=== PATIENT | female | born 1980 | race Caucasian/White ===

== ENCOUNTER 2020-03-21 11:00 | Emergency (ER) | payer MEDICAID, SELFPAY ==
[2020-03-21 11:08] VITALS: BP 144/88; PULSE 92; RESP 18; TEMP 36.6; O2SAT 100; BMI 41.1
--- NOTE | 2020-03-21 11:25 | W.ED.BACK ---
HPI - Back Pain/Injury General: Chief Complaint: Back Pain/Injury Stated Complaint: BACK PAIN Time Seen by Provider: 03/21/20 11:17 Source: patient Mode of arrival: ambulatory Limitations: no limitations History of Present Illness: HPI Narrative: 39-year-old female states she leaned over and pulled close of a washing machine yesterday. She states that she had a sudden low back pain after that. States the pain is a spasm-like pain and is much worse with walking or movement. She states if she sits or lays down the pain resolves. She states she used heat overnight with no improvement. She denies any bowel or bladder incontinence. MD elicited complaint: back pain Onset (ago): day(s) Timing: constant Severity: moderate Associated symptoms: Deny abdominal pain, chills, dysuria, fever(s), nausea or vomiting Review of Systems Const: Denies: fever(s), chills, body aches or change in appetite Eyes: Denies: blurry vision or eye discomfort ENMT: Denies: throat pain or dental pain Card: Denies: chest pain Resp: Denies: dyspnea GI: Denies: abdominal pain, nausea, vomiting or diarrhea : Denies: dysuria Musc: Reports: back pain Skin/Breast: Denies: rash Neuro: Denies: headache(s) Psych: Denies: depression Richard/Lymph: Denies: easy bruising All/Imm: Denies: urticaria Physical Exam Const: COMMON NORMALS: no acute distress, patient oriented x3 and healthy appearing HENMT: COMMON NORMALS: normocephalic and atraumatic HEAD & SCALP: normocephalic and atraumatic Eye: COMMON NORMALS: Equal, round and reactive pupils present and EOMs intact bilaterally PUPIL: Yes Equal, round and reactive pupils present Neck/C-Spine: COMMON NORMALS: full ROM and supple Chest: COMMONS NORMALS: normal inspection of the chest and normal palpation of entire chest wall Resp: COMMON NORMALS: normal respiratory effort, No retractions, No use of accessory muscles and clear to auscultation bilaterally AUSCULTATION: clear to auscultation bilaterally Cardio: COMMON NORMALS: regular rate, regular rhythm and No murmurs present (Cardio) RATE: regular rate RHYTHM: regular rhythm GI: COMMON NORMALS: Normal to inspection, nondistended, normoactive bowel sounds present, Soft to palpation, non-tender and no masses PALPATION: Yes Soft to palpation Back/Pelvis: OTHER: Paraspinal tenderness with no midline tenderness 5 out of 5 strength bilateral extremities. Extremity: COMMON NORMALS: normal to inspection and full ROM Neuro: COMMON NORMALS: patient oriented x3, moves all extremities and no focal motor deficits Psych: COMMON NORMALS: mental status grossly normal, Normal thought process present and cooperative THOUGHT PROCESS: Normal thought process present Skin: COMMON NORMALS: no rashes or lesions noted and no wounds GENERAL SKIN EXAM: no rashes or lesions noted Course Vital Signs: Vital signs: Vital Signs Temperature 97.9 F 03/21/20 11:08 Pulse Rate 92 03/21/20 11:08 Respiratory Rate 18 03/21/20 11:08 Blood Pressure 144/88 03/21/20 11:08 Pulse Oximetry 100 03/21/20 11:08 MDM - Back Pain/Injury MDM Narrative: Medical decision making narrative: Patient presents here with low back pain with a likely lumbar strain. Patient is to ice rest and will place on Naprosyn and Robaxin. She has no signs of spinal cord injury or abscess. Discharge Plan Discharge Patient Disposition: Home Clinical Impression: Strain of lumbar region Qualifiers: Encounter type: initial encounter Qualified Code(s): S39.012A - Strain of muscle, fascia and tendon of lower back, initial encounter Condition: Stable Prescriptions: New Robaxin-750 750 mg tablet 750 mg PO Q6H Qty: 30 RF: 0 Naprosyn 500 mg tablet 500 mg PO BID PRN (Reason: pain) Qty: 20 RF: 0 Discharge Orders: Discharge ED (Routine); Ordered 03/21/20 Ordered By: Wilman Hilton Discharge Diet: Advance as tolerated Discharge Activity: Resume usual activity Patient Instructions: Low Back Strain (ED) Stand Alone Forms: Work/School Release Coding Level of Care Code ED Grazing Aide for William Maradiaga
[2020-03-21] MEDS: HYDROcodone-acetaminophen 7.5-325 mg Tablet 1 TAB PO (11:41)
[2020-03-21 12:14] VITALS: BP 144/65; PULSE 74; RESP 18; O2SAT 97
== END 2020-03-21 12:15 | disposition home or self-care (01) ==
PROVIDERS: Emergency Provider Emergency Medicine
DX: S39.012A Strain of muscle, fascia and tendon of lower back, initial encounter (principal); X50.9XXA Other and unspecified overexertion or strenuous movements or postures, initial encounter
CPT/HCPCS: 12345; 99281; 99282

== ENCOUNTER 2022-12-25 15:01 | Emergency (ER) | payer MEDICAID, SELFPAY ==
[2022-12-25] VITALS (23 sets, daily range): BP systolic 112–145; BP diastolic 55–108; PULSE 55–80; RESP 16–18; TEMP 37.1; O2SAT 93–98; BMI 35.2
--- NOTE | 2022-12-25 15:14 | W.ED.ABDPA2 ---
HPI - Abdominal Pain General: Chief Complaint: Abdominal Pain Stated Complaint: frnt left abd pain Time Seen by Provider: 12/25/22 15:04 Source: patient Mode of arrival: ambulatory Limitations: no limitations History of Present Illness: Patient is a nice 42-year-old female presents to ED today with complaint of abdominal pain. Patient states pain began after eating yesterday evening. She states she immediately started feeling nauseous. She states pain seemed to wax and wane throughout the remainder of the evening and through the night but states she continued to get progressively worsening exacerbations of her discomfort. She states she has vomited several times today and pain does not seem to be easing up thus prompting her ED visit. She denies fevers. She states she is having normal bowel movements and passing flatulence. She denies urinary complaints. No flank pain. MD elicited complaint: abdominal pain Pertinent past history: kidney stones Onset (ago): day(s) (yesterday) Pain Consistency: intermittent Location: RUQ Severity: severe Quality: sharp Radiation: none Migration to: no migration Exacerbating factors: eating (occurred after eating yesterday evening) Relieving factors: nothing Associated Symptoms: Reports nausea and vomiting; Denies chills, diarrhea, dysuria, excessive flatus, fever(s), hematochezia, hematuria and melena Related Data: Patient : No Review of Systems Const: Denies: fever(s), chills, body aches, fatigue or malaise Card: Denies: chest pain Resp: Denies: dyspnea GI: Reports: abdominal pain, nausea and vomiting; Denies: diarrhea, excessive flatus, hematochezia, melena or mucus in stool : Denies: flank pain, dysuria or hematuria Musc: Denies: neck pain, back pain, extremity pain or joint pain Skin/Breast: Denies: rash Neuro: Denies: headache(s), numbness in extremities, weakness in extremities, sensory changes or dizziness Physical Exam Const: COMMON NORMALS: patient oriented x3, no limitations, alert and well nourished GENERAL APPEARANCE: cooperative and anxious (secondary to pain) NUTRITIONAL APPEARANCE: overweight ORIENTATION/CONSCIOUSNESS: Yes awake, Yes oriented to person, Yes oriented to place and Yes oriented to time HENMT: COMMON NORMALS: normocephalic and atraumatic HEAD & SCALP: normal to inspection, normocephalic and atraumatic Eye: COMMON NORMALS: no scleral icterus Resp: COMMON NORMALS: normal respiratory effort and clear to auscultation bilaterally AUSCULTATION: clear to auscultation bilaterally Cardio: COMMON NORMALS: regular rate and regular rhythm RATE: regular rate RHYTHM: regular rhythm GI: COMMON NORMALS: Normal to inspection, nondistended, normoactive bowel sounds present, Soft to palpation, No hepatosplenomegaly present and no masses INSPECTION: Yes normal to inspection AUSCULTATION: Yes Hypoactive bowel sounds present PALPATION: Yes Soft to palpation, Yes Tenderness to palpation present (GI) Details: RUQ (+ Harvey's), Yes Guarding due to palpation present (GI) and Yes No hepatosplenomegaly present : COMMON NORMALS: Yes no CVA tenderness BLADDER/KIDNEY EXAM: Yes no CVA tenderness Back/Pelvis: COMMON NORMALS: no CVA tenderness, thoracic and lumbar spine normal to inspection, no thoracic nor lumbar tenderness and thoraco-lumbar ROM normal Extremity: COMMON NORMALS: normal to inspection GENERAL: Yes normal exam except as noted Neuro: ANAI COMA SCALE: document GCS findings [place] coma scale eye opening: Spontaneous Anai coma scale verbal response: Orientated [place] coma scale motor response: Obey commands [place] coma scale total score: 15 COMMON NORMALS: patient oriented x3, moves all extremities, no focal motor deficits and no sensory deficits noted SENSORIUM/ORIENTATION: Yes alert, Yes oriented to person, Yes oriented to place and Yes oriented to time Skin: COMMON NORMALS: no rashes or lesions noted GENERAL SKIN EXAM: no rashes or lesions noted Course Consultations: Consultation #1: Lien hospitalist GAS COMBUSTION ENGINEER with accepting physician Dr. Pak-accepts patient for transfer Vital Signs: Vital signs: Vital Signs Temperature 98.7 F 12/25/22 15:10 Pulse Rate 71 12/25/22 15:10 Respiratory Rate 18 12/25/22 16:08 Blood Pressure 141/87 12/25/22 15:10 Pulse Oximetry 96 12/25/22 16:08 Oxygen Delivery Me thod Room Air 12/25/22 15:10 MDM - Abdominal Pain Medical Decision Making Patient's US gallbladder showing cholelithiasis with a mildly dilated CBD with recommendation of MRCP. Patient's blood work showing elevated AST/ALT at 75/58. Mildly elevated alk phos at 145. Lipase 61. She has a normal T. bili. I do not have any MRI coverage at this time an MRI will be down tomorrow. Discussed case with Dr. Hilton and decision was made for transfer for MRCP possible need for ERCP. Lab Data 12/25/22 15:43 12/25/22 15:43 Labs/Radiology: Laboratory Results WBC 13.75 10^3/uL (3.29-11.43) H 12/25/22 15:43 RBC 5.31 10^6/uL (3.85-5.65) 12/25/22 15:43 Hgb 15.00 g/dL (11.27-16.99) 12/25/22 15:43 Hct 44.8 % (36-47) 12/25/22 15:43 MCV 84.4 fl (85-98) L 12/25/22 15:43 MCH 28.2 pg (27-33) 12/25/22 15:43 MCHC 33.5 g/dL (30-55) 12/25/22 15:43 RDW 13.3 % (12.1-15.1) 12/25/22 15:43 Plt Count 294 10^3/cmm (157-399) 12/25/22 15:43 MPV 10.9 fL (7.4-10.4) H 12/25/22 15:43 Neut % (Auto) 76.6 % 12/25/22 15:43 Lymph % (Auto) 16.9 % 12/25/22 15:43 [place] % (Auto) 5.0 % 12/25/22 15:43 Eos % (Auto) 0.8 % 12/25/22 15:43 Baso % (Auto) 0.3 % 12/25/22 15:43 Neut # (Auto) 10.53 10^3/uL (1.8-7.7) H 12/25/22 15:43 Lymph # (Auto) 2.3 10^3/uL (0.8-4.8) 12/25/22 15:43 [place] # (Auto) 0.7 10^3/uL (0.2-0.9) 12/25/22 15:43 Eos # (Auto) 0.1 10^3/uL (0.0-0.8) 12/25/22 15:43 Baso # (Auto) 0.0 10^3/uL (0.0-0.1) 12/25/22 15:43 Nucleated RBC % (auto) 0 % 12/25/22 15:43 Nucleated RBCs # 0.0 /100WBC 12/25/22 15:43 Sodium 141 mmol/L (136-145) 12/25/22 15:43 Potassium 3.8 mmol/L (3.5-5.1) 12/25/22 15:43 Chloride 106 mmol/L (98-107) 12/25/22 15:43 Carbon Dioxide 25 mmol/L (22-29) 12/25/22 15:43 Anion Gap 13.8 (5-19) 12/25/22 15:43 BUN 11 mg/dL (6-20) 12/25/22 15:43 Creatinine 0.6 mg/dL (0.5-0.9) 12/25/22 15:43 GFR Calculation 108.6 mL/min (90-130) 12/25/22 15:43 Glucose 105 mg/dL (65-115) 12/25/22 15:43 Calculated Osmolality 292 mOsm/kg (285-295) 12/25/22 15:43 Calcium 9.6 mg/dL (8.5-10.5) 12/25/22 15:43 Total Bilirubin 0.6 mg/dL (0.15-1.2) 12/25/22 15:43 AST 75 U/L (0-32) H 12/25/22 15:43 ALT 58 U/L (0-33) H 12/25/22 15:43 Alkaline Phosphatase 145 U/L (35-105) H 12/25/22 15:43 Total Protein 7.0 g/dL (6.6-8.7) 12/25/22 15:43 Albumin 4.4 g/dL (3.5-5.2) 12/25/22 15:43 Globulin 2.6 g/dL (1.3-4.6) 12/25/22 15:43 Lipase 61 U/L (13-60) H 12/25/22 15:43 HCG, Qual Negative (Negative) 12/25/22 15:43 Urine Color Yellow (Yellow) 12/25/22 16:05 Urine Appearance Hazy (CLEAR) A 12/25/22 16:05 Urine pH 7 (5-7) 12/25/22 16:05 Ur Specific [place] 1.010 (1.005-1.030) 12/25/22 16:05 Urine Protein Neg (Negative) 12/25/22 16:05 Urine Glucose (UA) Norm (Normal) 12/25/22 16:05 Urine Ketones Negative (Negative) 12/25/22 16:05 Urine Blood Neg (Negative) 12/25/22 16:05 Urine Nitrate Negative (Negative) 12/25/22 16:05 Urine Bilirubin Neg (Negative) 12/25/22 16:05 Urine Urobilinogen 4 mg/dL (Negative) H 12/25/22 16:05 Ur Leukocyte Esterase Negative (Negative) 12/25/22 16:05 Urine RBC 0-4 /hpf (0-2) H 12/25/22 16:05 Urine WBC 5-10 /hpf (0-5) H 12/25/22 16:05 Ur Squamous Epith Cells 5-10 /hpf (0-5) H 12/25/22 16:05 Amorphous Sediment 4+ /hpf 12/25/22 16:05 Urine Bacteria 1+ /hpf (NONE) H 12/25/22 16:05 All radiology interpretation(s) finalized by discharge Discharge Plan Discharge Patient Disposition: Xfer Short-Term Hosp Clinical Impression: Cholelithiasis Qualifiers: Cholelithiasis location: gallbladder and bile duct Cholecystitis presence: without cholecystitis Biliary obstruction: without biliary obstruction Qualified Code(s): K80.70 - Calculus of gallbladder and bile duct without cholecystitis without obstruction Condition: Stable Referrals: Shreya Greenberg DO [Primary Care Provider] - Coding Level of Care Code ED Legal Contracts Specialist for Chg Hiren
--- NOTE | 2022-12-25 15:25 | US_ITS ---
WS: [id number] RIGHT UPPER QUADRANT ULTRASOUND HISTORY: RUQ pain, N/V COMPARISON: 08/27/2018 Liver: 18.3 cm in length. Liver is top normal size. No bile duct dilatation. Portal Vein: Normal hepatopetal flow with monophasic waveform. Gallbladder: Normally distended gallbladder. Small gravel like stones within the gallbladder. CBD: 0.9 cm Pancreas: Normal size and echogenicity. Right kidney: 11.2 cm in length. Normal size and echogenicity. No hydronephrosis or mass. Aorta and IVC: Unremarkable abdominal aorta and IVC. No ascites. IMPRESSION: 1. Cholelithiasis. Very tiny gallstones are present in the gallbladder lumen. No pericholecystic flui d. 2. Mildly dilated common bile duct. Common bile duct dilatation is new since 08/27/2018. Recommend [facility]C P evaluation. Stones within the common bile duct need to be excluded.
[2022-12-25 15:52] LABS: Basophils % 0.3 %; Eosinophils # 0.1 10^3/uL (0.0-0.8); Eosinophils % 0.8 %; Hematocrit 44.8 % (36-47); Lymphocytes # 2.3 10^3/uL (0.8-4.8); Lymphocytes % 16.9 %; Mean Corpuscular HGB Conc 33.5 g/dL (30-55); Mean Corpuscular Hemoglobin 28.2 pg (27-33); Mean Corpuscular Volume 84.4 fl (85-98); Mean Platelet Volume 10.9 fL (7.4-10.4); Monocytes # 0.7 10^3/uL (0.2-0.9); Neutrophils # 10.53 10^3/uL (1.8-7.7); Neutrophils % 76.6 %; Nucleated Red Blood Cells % 0 %; Platelet Count 294 10^3/cmm (157-399); Red Blood Count 5.31 10^6/uL (3.85-5.65); Red Cell Distribution Width 13.3 % (12.1-15.1); White Blood Count 13.75 10^3/uL (3.29-11.43)
[2022-12-25] MEDS: sodium chloride 0.9% 1,000 ML 999 ML IV (16:07)
[2022-12-25] MEDS: ondansetron 2 mg/ML SDV 2 mL 4 MG IVP ×2 (16:07→22:02)
[2022-12-25] MEDS: morphine 4 mg/mL SDV 1 mL IVP ×3 (16:08→22:02)
[2022-12-25 16:17] LABS: Alanine Aminotransferase 58 U/L (0-33); Albumin Level 4.4 g/dL (3.5-5.2); Alkaline Phosphatase 145 U/L (35-105); Anion Gap 13.8 (5-19); Aspartate Amino Transferase 75 U/L (0-32); Blood Urea Nitrogen 11 mg/dL (6-20); Calcium 9.6 mg/dL (8.5-10.5); Carbon Dioxide 25 mmol/L (22-29); Chloride 106 mmol/L (98-107); Globulin 2.6 g/dL (1.3-4.6); Glomerular Filtration Rate 108.6 mL/min (90-130); Glucose 105 mg/dL (65-115); HCG, Serum Qual Negative (Negative); Lipase 61 U/L (13-60); Osmolality Calculated 292 mOsm/kg (285-295); Potassium 3.8 mmol/L (3.5-5.1); Sodium 141 mmol/L (136-145); Total Bilirubin 0.6 mg/dL (0.15-1.2)
[2022-12-25 16:44] LABS: Add Urine Culture? No; Add Urine Microscopic? YES; Amorphous Sediment Urine 4+ /hpf; Bacteria Urine 1+ /hpf; Bilirubin Urine Neg (Negative); Blood Urine Neg (Negative); Glucose Urine UA Norm (Normal); Ketones Urine Negative (Negative); Leukocyte Esterase Urine Negative (Negative); Nitrate Urine Negative (Negative); Protein Urine Neg (Negative); RBC Urine 0-4 /hpf (0-2); Urine Appearance Hazy (CLEAR); Urine Color Yellow (Yellow); Urobilinogen Urine 4 mg/dL (Negative); pH Urine 7 (5-7)
[2022-12-25] MEDS: nicotine 21 mg Patch 1 PATCH TRANSDERMA (20:14)
== END 2022-12-26 00:28 | disposition short-term general hospital (02) ==
PROVIDERS: Emergency Provider Physician Assistant; PCP Family Medicine
DX: K80.70 Calculus of gallbladder and bile duct without cholecystitis without obstruction (principal)
CPT/HCPCS: 36415; 76705; 80053; 81001; 83690; 84703; 85025; 96361; 96374; 96375; 99284; J2270; J2405; J7030

== ENCOUNTER → 2023-01-15 12:46 | Outpatient (BNVA) | payer MEDICAID, SELFPAY | PROVIDERS: PCP Family Medicine; Visit Provider Surgery | DX: K80.20 Calculus of gallbladder without cholecystitis without obstruction (principal); K83.8 Other specified diseases of biliary tract | CPT/HCPCS: 99204 ==

== ENCOUNTER 2023-01-17 00:43 | Inpatient (IN) | payer MEDICAID, SELFPAY ==
[2023-01-17] VITALS (14 sets, daily range): BP systolic 108–137; BP diastolic 66–91; PULSE 53–82; RESP 16–20; TEMP 36.4–36.8; O2SAT 93–99; BMI 35.2
[2023-01-17 01:24] LABS: Basophils % 0.3 %; Eosinophils # 0.2 10^3/uL (0.0-0.8); Eosinophils % 1.3 %; Hematocrit 42.9 % (36-47); Lymphocytes # 3.1 10^3/uL (0.8-4.8); Lymphocytes % 25.4 %; Mean Corpuscular HGB Conc 33.6 g/dL (30-55); Mean Corpuscular Hemoglobin 28.5 pg (27-33); Mean Platelet Volume 10.7 fL (7.4-10.4); Monocytes # 0.8 10^3/uL (0.2-0.9); Monocytes % 6.4 %; Neutrophils # 7.98 10^3/uL (1.8-7.7); Neutrophils % 66.2 %; Nucleated Red Blood Cells % 0 %; Platelet Count 268 10^3/cmm (157-399); Red Blood Count 5.05 10^6/uL (3.85-5.65); Red Cell Distribution Width 13.1 % (12.1-15.1); White Blood Count 12.06 10^3/uL (3.29-11.43)
[2023-01-17] MEDS: ondansetron 2 mg/ML SDV 2 mL 4 MG IVP ×2 (01:25→22:48)
[2023-01-17] MEDS: sodium chloride 0.9% 1,000 ML 999 ML IV (01:26)
[2023-01-17] MEDS: ketorolac 30 mg/mL INJ IVP (01:27)
--- NOTE | 2023-01-17 01:27 | W.ED.ABDPA2 ---
HPI - Abdominal Pain General: Chief Complaint: Abdominal Pain Stated Complaint: right abdomin pain, gallbladder surgery for 01/21 Time Seen by Provider: 01/17/23 00:56 History of Present Illness: Patient presents to the ER with complaints of right upper quadrant gallbladder pain. Patient has known gallstones she is recently seen in ER and transferred to [place] where she was released and appointment was made with Dr. Sanchez for laparoscopic cholecystectomy on Saturday. Over the last 24 hours specifically the last 6 hours patient's pain has increased significantly along with nausea and she presented to the ER for further evaluation. Related Data: Date of Last Menstrual Period: 12/31/22 Review of Systems General: Reports: 10 or more systems reviewed and unremarkable except in HPI and below PFSH ED PFSH: Surgical History History of loop electrical excision procedure (LEEP) Hx of heart artery stent x2 Family History Mother Cancer Hypertension Father Cancer Social History Smoking and tobacco/nicotine status: current every day tobacco/nicotine user cigarettes Alcohol intake: current Alcohol intake frequency: holidays/special occasions only Female Reproductive History: Date of last menstrual period: 12/31/22 Physical Exam Const: COMMON NORMALS: no acute distress, average body habitus, patient oriented x3, no limitations, healthy appearing, alert and well nourished HENMT: COMMON NORMALS: normocephalic, atraumatic, hearing grossly normal bilaterally, external ears normal, Normal external nose present, moist oral mucous membranes and oropharynx normal HEAD & SCALP: normocephalic and atraumatic NOSE: Normal external nose present EXTERNAL EAR: Yes external ears normal Neck/C-Spine: COMMON NORMALS: full ROM, no lymphadenopathy, supple, no meningeal signs, no JVD and Thyroid normal THYROID: Thyroid normal Chest: COMMONS NORMALS: normal inspection of the chest and normal palpation of entire chest wall Resp: COMMON NORMALS: normal respiratory effort, No retractions, No use of accessory muscles and clear to auscultation bilaterally AUSCULTATION: clear to auscultation bilaterally Cardio: COMMON NORMALS: no JVD, regular rate, regular rhythm, S1 normal heart sound present, S2 normal heart sound present, No gallops present (Cardio), No clicks present (Cardio), No murmurs present (Cardio) and No rub (Cardio) RATE: regular rate RHYTHM: regular rhythm HEART SOUNDS: S1 normal heart sound present and S2 normal heart sound present GI: COMMON NORMALS: Normal to inspection, nondistended, normoactive bowel sounds present, Soft to palpation, No hepatosplenomegaly present and no masses; negative for non-tender (Painful to palpation right upper quadrant.) PALPATION: Yes Soft to palpation and Yes No hepatosplenomegaly present : COMMON NORMALS: Yes no CVA tenderness BLADDER/KIDNEY EXAM: Yes no CVA tenderness Back/Pelvis: COMMON NORMALS: no CVA tenderness Neuro: COMMON NORMALS: patient oriented x3 SENSORIUM/ORIENTATION: Yes alert MENINGEAL SIGNS: Yes no meningeal signs Course Vital Signs: Vital signs: Vital Signs Temperature 97.9 F 01/17/23 00:52 Pulse Rate 69 01/17/23 04:56 Respiratory Rate 16 01/17/23 04:56 Blood Pressure 131/83 01/17/23 04:56 Pulse Oximetry 98 01/17/23 04:56 Oxygen Delivery Me thod Room Air 01/17/23 04:56 MDM - Abdominal Pain Medical Decision Making This patient has already seen Dr. Sanchez and has an appointment set up for [facility] Dr. Sanchez was consulted for the patient in the elevated lipase of approximately 900. He wanted us to get an ultrasound which showed a common bile duct of 5.0 mm and gallbladder wall 4.9 mm. He said he is okay with admitting to the hospitalist for the pancreatitis and consulting him. was consulted who agreed for admission for further evaluation and treatment. Differential Diagnosis Likely abdominal pain; Unlikely acute appendicitis, calculus of kidney, constipation, diverticulitis, endometriosis, gastroenteritis, pancreatitis or small bowel obstruction Medical Records I reviewed the patient's medical records. Lab Data I reviewed the patient's lab results. 01/17/23 01:18 01/17/23 01:18 Labs/Radiology: Radiology Impressions Abdomen/Pelvis CT 01/17/23 01:53 IMPRESSION: Negative for acute abdominopelvic pathology. Laboratory Results WBC 12.06 10^3/uL (3.29-11.43) H 01/17/23 01:18 RBC 5.05 10^6/uL (3.85-5.65) 01/17/23 01:18 Hgb 14.40 g/dL (11.27-16.99) 01/17/23 01:18 Hct 42.9 % (36-47) 01/17/23 01:18 MCV 85.0 fl (85-98) 01/17/23 01:18 MCH 28.5 pg (27-33) 01/17/23 01:18 MCHC 33.6 g/dL (30-55) 01/17/23 01:18 RDW 13.1 % (12.1-15.1) 01/17/23 01:18 Plt Count 268 10^3/cmm (157-399) 01/17/23 01:18 MPV 10.7 fL (7.4-10.4) H 01/17/23 01:18 Neut % (Auto) 66.2 % 01/17/23 01:18 Lymph % (Auto) 25.4 % 01/17/23 01:18 [place] % (Auto) 6.4 % 01/17/23 01:18 Eos % (Auto) 1.3 % 01/17/23 01:18 Baso % (Auto) 0.3 % 01/17/23 01:18 Neut # (Auto) 7.98 10^3/uL (1.8-7.7) H 01/17/23 01:18 Lymph # (Auto) 3.1 10^3/uL (0.8-4.8) 01/17/23 01:18 [place] # (Auto) 0.8 10^3/uL (0.2-0.9) 01/17/23 01:18 Eos # (Auto) 0.2 10^3/uL (0.0-0.8) 01/17/23 01:18 Baso # (Auto) 0.0 10^3/uL (0.0-0.1) 01/17/23 01:18 Nucleated RBC % (auto) 0 % 01/17/23 01:18 Nucleated RBCs # 0.0 /100WBC 01/17/23 01:18 Sodium 139 mmol/L (136-145) 01/17/23 01:18 Potassium 3.9 mmol/L (3.5-5.1) 01/17/23 01:18 Chloride 103 mmol/L (98-107) 01/17/23 01:18 Carbon Dioxide 26 mmol/L (22-29) 01/17/23 01:18 Anion Gap 13.9 (5-19) 01/17/23 01:18 BUN 13 mg/dL (6-20) 01/17/23 01:18 Creatinine 0.8 mg/dL (0.5-0.9) 01/17/23 01:18 GFR Calculation 77.9 mL/min (90-130) L 01/17/23 01:18 Glucose 115 mg/dL (65-115) 01/17/23 01:18 Calculated Osmolality 289 mOsm/kg (285-295) 01/17/23 01:18 Calcium 9.5 mg/dL (8.5-10.5) 01/17/23 01:18 Total Bilirubin 0.3 mg/dL (0.15-1.2) 01/17/23 01:18 AST 70 U/L (0-32) H 01/17/23 01:18 ALT 51 U/L (0-33) H 01/17/23 01:18 Alkaline Phosphatase 162 U/L (35-105) H 01/17/23 01:18 Total Protein 6.7 g/dL (6.6-8.7) 01/17/23 01:18 Albumin 4.0 g/dL (3.5-5.2) 01/17/23 01:18 Globulin 2.7 g/dL (1.3-4.6) 01/17/23 01:18 Lipase 906 U/L (13-60) H 01/17/23 01:18 Urine Color Light yellow (Yellow) 01/17/23 01:25 Urine Appearance Hazy (CLEAR) A 01/17/23 01:25 Urine pH 7 (5-7) 01/17/23 01:25 Ur Specific [place] 1.010 (1.005-1.030) 01/17/23 01:25 Urine Protein Neg (Negative) 01/17/23 01:25 Urine Glucose (UA) Norm (Normal) 01/17/23 01:25 Urine Ketones Negative (Negative) 01/17/23 01:25 Urine Blood Neg (Negative) 01/17/23 01:25 Urine Nitrate Negative (Negative) 01/17/23 01:25 Urine Bilirubin Neg (Negative) 01/17/23 01:25 Urine Urobilinogen 1 mg/dL (Negative) H 01/17/23 01:25 Ur Leukocyte Esterase Negative (Negative) 01/17/23 01:25 Urine RBC None /hpf (0-2) 01/17/23 01:25 Urine WBC None /hpf (0-5) 01/17/23 01:25 Ur Squamous Epith Cells None /hpf (0-5) 01/17/23 01:25 Amorphous Sediment 2+ /hpf 01/17/23 01:25 Urine Bacteria Trace /hpf (NONE) 01/17/23 01:25 All radiology interpretation(s) finalized by discharge Discharge Plan Discharge Patient Disposition: Admitted As Inpatient Clinical Impression: Acute pancreatitis, Cholelithiasis Condition: Stable Prescriptions: No Action ondansetron 8 mg tablet,disintegrating 8 mg PO Q12H PRN (Reason: nausea and vomiting) Naprosyn 500 mg tablet 500 mg PO BID PRN (Reason: pain) Qty: 20 0RF Referrals: Shreya Greenberg DO [Primary Care Provider] - Coding Level of Care Code ED Base Filler Operator for Chg Hiren
[2023-01-17 01:43] LABS: Add Urine Microscopic? YES; Bilirubin Urine Neg (Negative); Blood Urine Neg (Negative); Glucose Urine UA Norm (Normal); Ketones Urine Negative (Negative); Leukocyte Esterase Urine Negative (Negative); Nitrate Urine Negative (Negative); Protein Urine Neg (Negative); Urine Appearance Hazy (CLEAR); Urine Color Light yellow (Yellow); Urobilinogen Urine 1 mg/dL (Negative); pH Urine 7 (5-7)
[2023-01-17 01:44] LABS: Add Urine Culture? No; Amorphous Sediment Urine 2+ /hpf; Bacteria Urine TRACE /hpf
[2023-01-17 01:45] LABS: Alanine Aminotransferase 51 U/L (0-33); Alkaline Phosphatase 162 U/L (35-105); Anion Gap 13.9 (5-19); Aspartate Amino Transferase 70 U/L (0-32); Blood Urea Nitrogen 13 mg/dL (6-20); Calcium 9.5 mg/dL (8.5-10.5); Carbon Dioxide 26 mmol/L (22-29); Chloride 103 mmol/L (98-107); Globulin 2.7 g/dL (1.3-4.6); Glomerular Filtration Rate 77.9 mL/min (90-130); Glucose 115 mg/dL (65-115); Osmolality Calculated 289 mOsm/kg (285-295); Potassium 3.9 mmol/L (3.5-5.1); Sodium 139 mmol/L (136-145); Total Bilirubin 0.3 mg/dL (0.15-1.2); Total Protein 6.7 g/dL (6.6-8.7)
[2023-01-17 01:51] LABS: Lipase 906 U/L (13-60)
--- NOTE | 2023-01-17 01:53 | CTR_ITS ---
PROCEDURE INFORMATION: Exam: CT Abdomen And Pelvis Without Contrast Exam date and time: 01/17/2023 2:05 AM Age: 42 years old Clinical indication: Abdominal pain; Localized; Right upper quadrant (ruq); Patient HX: Patient is scheduled to have gallbladder surgery on 01/21, pain increased tonight; Additional info: Ruq abd pain, elevated lipase, known gallstones TECHNIQUE: Imaging protocol: Computed tomography of the abdomen and pelvis without contrast. Radiation optimization: All CT scans at this facility use at least one of these dose optimization techniques: automated exposure control; mA and/or kV adjustment per patient size (includes targeted exams where dose is matched to clinical indication); or iterative reconstruction. REPORTING DATA: Count of CT and Cardiac NM exams in prior 12 months: This patient has received 0 known CTs and 0 known cardiac nuclear medicine studies in the 12 months prior to the current study. COMPARISON: CT abdomen pelvis con [id number] 08/27/2018 3:41 PM RADIATION DOSE METRICS: Total DLP (mGy-cm): 839.27 FINDINGS: Liver: Normal. No mass. Gallbladder and bile ducts: Cholelithiasis. Negative for gallbladder wall thickening. No ductal dilation. Pancreas: Normal. No ductal dilation. Spleen: Normal. No splenomegaly. Adrenal glands: Normal. No mass. Kidneys and ureters: 2 mm nonobstructing right kidney stone. Negative for hydronephrosis. Negative for perinephric inflammation. Stomach and bowel: Unremarkable. No obstruction. No mucosal thickening. Appendix: Normal appendix. Intraperitoneal space: Unremarkable. No free air. No significant fluid collection. Vasculature: Unremarkable. No abdominal aortic aneurysm. Lymph nodes: Unremarkable. No enlarged lymph nodes. Urinary bladder: Unremarkable as visualized. Reproductive: Unremarkable as visualized. Bones/joints: Unremarkable. No acute fracture. Soft tissues: Unremarkable. CT/CT abdomen pelvis con [id number] IMPRESSION: Negative for acute abdominopelvic pathology.
--- NOTE | 2023-01-17 04:12 | USR_ITS ---
PROCEDURE INFORMATION: Exam: US Abdomen, Limited; Right Upper Quadrant Exam date and time: 01/17/2023 4:31 AM Age: 42 years old Clinical indication: Abdominal pain; Other: Ruq pain; Additional info: Ruq pain, elevated lipase, known gall stones TECHNIQUE: Imaging protocol: Real time ultrasound of the abdomen with image documentation. Limited exam focused on the right upper quadrant. COMPARISON: 1. CT abdomen pelvis wo con [id number] 01/17/2023 2:05 AM 2. US gall bladder [id number] 12/25/2022 3:50 PM FINDINGS: Liver: Normal. No masses. Gallbladder: Cholelithiasis. Negative for gallbladder wall thickening. Negative for pericholecystic fluid. Biliary ducts: Normal. No stones. No dilation. Pancreas: Visualized pancreas is unremarkable. Right kidney: Normal. No mass. No hydronephrosis. US/US abdomen limited [id number] IMPRESSION: Cholelithiasis. Negative for acute pathology.
--- NOTE | 2023-01-17 05:56 | PM.HP ---
Providers/Chief Complaint Admitting Physician: Sirisha Veliz MD Primary Care Provider: Shreya Greenberg DO Chief Complaint: right abdomin pain, gallbladder surgery for 01/21 History of Present Illness Lucia Fabian is a 42 year old female with no significant past medical history was recently diagnosed with multiple gallbladder stones and was scheduled for cholecystectomy on Saturday. But she presented to ER last night with complaint of worsening right upper quadrant pain since few hours. She describes pain as crampy 8 out of 10 no radiation no aggravating or relieving factors and associated with nausea but no vomiting or diarrhea. She ate meat fajita for last night. She further added she is having cold and cough which she feels her usual allergies but no fever chest pain or urinary complaints. Review of Systems Narrative: As per HPI Medications/Allergies Home Medications Medication Instructions Recorded Confirmed Last Taken Type naproxen 500 mg tablet (Naprosyn) 500 mg PO BID PRN pain #20 tabs 03/21/20 01/15/23 Unknown Rx ondansetron 8 mg disintegrating 8 mg PO Q12H PRN nausea and 01/15/23 01/15/23 Unknown History tablet vomiting Allergies Allergy/AdvReac Type Severity Reaction Status Date / Time iodine Allergy ALGY-Swell Verified 01/15/23 13:04 Lip/Tongue/Throat PFSH Acute PFSH: Surgical History History of loop electrical excision procedure (LEEP) Hx of heart artery stent x2 Family History Mother Cancer Hypertension Father Cancer Social History Smoking and tobacco/nicotine status: current every day tobacco/nicotine user cigarettes Alcohol intake: current Alcohol intake frequency: holidays/special occasions only Female Reproductive History: Date of last menstrual period: 12/31/22 Vitals/I&O/Wt Last Vital Signs Temp 97.9 F 01/17/23 00:52 Pulse 69 01/17/23 04:56 Resp 16 01/17/23 04:56 BP 131/83 01/17/23 04:56 Pulse Ox 98 01/17/23 04:56 O2 Del Method Room Air 01/17/23 04:56 01/16/23 01/16/23 01/17/23 14:59 22:59 06:59 Intake Total 1000 / 1000 Balance 1000 / 1000 Weight last 48 hrs Weight 90.265 kg Physical Exam Narrative: She is alert awake oriented x3 not in acute distress, obese Chest clear to auscultation bilaterally occasional scattered wheezes present. Cardiovascular normal heart sounds Abdomen soft nondistended mildly tender in right upper quadrant and epigastric area, normal bowel sounds Extremities no edema noted Data 01/17/23 01:18 01/17/23 01:18 US: Radiologist's impression: Cholelithiasis negative for acute pathology CT Abd/Pel: Radiologist's impression: Negative for acute abdominopelvic pathology A&P Assessment and plan (1) Acute pancreatitis: Qualifiers: Acute pancreatitis complication: unspecified Pancreatitis type: unspecified pancreatitis type Qualified Code(s): K85.90 - Acute pancreatitis without necrosis or infection, unspecified (2) Cholelithiasis: Qualifiers: Biliary obstruction: without biliary obstruction Cholecystitis presence: without cholecystitis Cholelithiasis location: gallbladder Qualified Code(s): K80.20 - Calculus of gallbladder without cholecystitis without obstruction Plan 42-year-old female morbidly obese with history of cholelithiasis presented with worsening right upper quadrant and epigastric pain associated with nausea and was found to have lipase of 900 and abnormal LFTs likely secondary to acute cholecystitis/acute pancreatitis. Surgery aware of the patient. Dr. Sanchez to see her in a.m. Will give IV fluids normal saline at 75 mL/h N.p.o. for now IV Zofran 4 mg every 6 hours as needed IV pantoprazole 40 mg every 12 hours Intermittent compression devices for DVT prophylaxis She is full code for [facility] Necessity Statement*: She might need continued hospitalization for more than 2 days for acute pancreatitis secondary to cholelithiasis and postop recovery Time Spent in Patient Care: 30 minutes Coding Level of Care Code Acute Code for [facility] Diagnoses Acute pancreatitis K85.90 Acute pancreatitis complication: unspecified Pancreatitis type: unspecified pancreatitis type Cholelithiasis K80.20 Biliary obstruction: without biliary obstruction Cholecystitis presence: without cholecystitis Cholelithiasis location: gallbladder Time Spent (min) 30
--- NOTE | 2023-01-17 06:09 | ECG_ITS ---
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 Measurements Intervals [place] Rate: 53 P: 59 [place]: 177 QRS: 36 QRSD: 109 T: 9 QT: 435 QTc: 409 Interpretive Statements SINUS BRADYCARDIA Compared to ECG 07/31/2017 19:55:40 Sinus rhythm no longer present Intraventricular conduction delay no longer present Electronically Signed On 01-17-2023 21:37:58 CDT by Jorje Dominguez M.D. [id number]
[2023-01-17] MEDS: pantoprazole 40 mg SDV IVP ×2 (06:29→17:41)
[2023-01-17] MEDS: sodium chloride 0.9% 1,000 ML 100 ML IV ×2 (06:30→17:10)
[2023-01-17] MEDS: HYDROmorphone 1 mg/mL INJ 1 mL 0.4 MG IVP ×4 (07:47→22:06)
[2023-01-17] MEDS: nicotine 21 mg Patch 1 PATCH TRANSDERMA (12:13)
--- NOTE | 2023-01-17 14:41 | PM.CONSULT ---
Providers/Reason For Consult Consulting Physician/Specialty*: Dr. Jose Juan Sanchez, DO/General surgery Reason for Consult*: Gallstone pancreatitis Attending Physician: Jong Acosta MD Primary Care Provider: Shreya Greenberg DO History of Present Illness History of Present Illness Lucia Fabian is a 42 year old female who presented to the hospital with severe epigastric abdominal pain radiating to her back along with nausea. She was previously seen in my clinic and scheduled for laparoscopic cholecystectomy with intraoperative cholangiogram. A previous ultrasound showed a dilated common bile duct. Ultrasound during this hospital stay shows a normal common bile duct and cholelithiasis. Lipase is over 900. Palpation and eating make her pain worse. Nothing seems to make her pain better. She denies any hematochezia and/or melena Review of Systems General: Reports: 10 or more systems reviewed and unremarkable except in HPI and below Medications/Allergies Home Medications Medication Instructions Recorded Confirmed Last Taken Type chlorpheniramine maleate 4 mg 4 mg PO Q4H PRN Allergic Symptoms 01/17/23 01/17/23 01/16/23 History tablet hydroxyzine HCl 25 mg tablet 25 mg PO BEDTIME PRN Sleep 01/17/23 01/17/23 Unknown History ondansetron 4 mg disintegrating 4 mg PO Q12H PRN Nausea 01/17/23 01/17/23 01/16/23 History tablet oxycodone-acetaminophen 5 mg-325 1 tab PO Q8H PRN Pain 01/17/23 01/17/23 01/16/23 History mg tablet Allergies Allergy/AdvReac Type Severity Reaction Status Date / Time iodine Allergy ALGY-Swell Verified 01/15/23 13:04 Lip/Tongue/Throat Current Medications Generic Name Dose Route Start Last Admin Trade Name Freq PRN Reason Stop Dose Admin Fexofenadine HCl 180 mg 01/17/23 09:00 01/17/23 10:51 Fexofenadine 60 Mg Tablet PO Not Given DAILY XUAN Hydromorphone HCl 0.4 mg 01/17/23 07:37 01/17/23 11:00 Hydromorphone 1 Mg/Ml Inj 1 Ml IVP 0.4 mg Q2H PRN Administration -Severe Pain 7-10 Sodium Chloride 1,000 mls @ 100 mls/hr 01/17/23 06:15 01/17/23 06:30 Sodium Chloride 0.9% IV 100 mls/hr .Q10H XUAN Administration Nicotine 1 patch 01/17/23 11:20 01/17/23 12:13 Nicotine 21 Mg Patch TRANSDERMA 1 patch DAILY XUAN Administration Pantoprazole Sodium 40 mg 01/17/23 06:30 01/17/23 06:29 Pantoprazole 40 Mg Sdv IVP 40 mg Q12H XUAN Administration PFSH Acute PFSH: Surgical History History of loop electrical excision procedure (LEEP) Hx of heart artery stent x2 Family History Mother Cancer Hypertension Father Cancer Social History Smoking and tobacco/nicotine status: current every day tobacco/nicotine user cigarettes Alcohol intake: current Alcohol intake frequency: holidays/special occasions only Female Reproductive History: Date of last menstrual period: 12/31/22 Vitals/I&O/Wt Last Vital Signs Temp 98.2 F 01/17/23 11:18 Pulse 57 L 01/17/23 11:18 Resp 18 01/17/23 11:18 BP 108/66 01/17/23 11:18 Pulse Ox 95 01/17/23 11:18 O2 Del Method Room Air 01/17/23 11:18 01/16/23 01/17/23 01/17/23 22:59 06:59 14:59 Intake Total 1000 / 1000 Balance 1000 / 1000 Weight last 48 hrs Weight 199 lb Physical Exam Narrative: General : Patient is well developed , no acute distress, oriented x3 Head : Normal cephalic, a-traumatic. Ears : Pinnae and external canal are normal. Hearing is normal. Eyes : PERRLA, Sclera and injection are normal. No conjunctival discharge. Nose : Mucous membranes are without erythema. Throat : buccal mucosa is normal, gums are without significant recession or hypertrophy. Lungs : Equal chest rise bilaterally, no use of accessory muscles, trachea is midline. Cor : Rate and rhythm are normal. Abdomen : Soft, ND, tender over the epigastrium, negative Harvey's, no g/r/m Extremities : No edema, no cyanosis or clubbing, dorsalis pedis pulses are present bilaterally, non-tender to palpation of calves. Upper extremities are normal bilaterally. Back : non-tender to palpation, no CVA tenderness. Neuro : CN II - XII intact, Upper and lower extremities have equal and full strength Data 01/17/23 01:18 01/17/23 01:18 A&P Assessment and plan (1) Gallstone pancreatitis: (2) Symptomatic cholelithiasis: Plan We will let the pancreas rest for today and proceed with laparoscopic cholecystectomy with intraoperative cholangiogram tomorrow. The risks and benefits of the procedure, including but not limited to, bleeding, infection, scar, numbness, pain, damage to surrounding structures, damage to common bile duct requiring additional surgery, conversion to an open procedure, were explained to the patient. He is understanding of the risks and wishes to proceed. IV fluids Clear liquid diet, n.p.o. after midnight Medical management per hospitalist Coding Level of Care Code 89320 Diagnoses Gallstone pancreatitis K85.10 Symptomatic cholelithiasis K80.20
--- NOTE | 2023-01-17 21:57 | PC.NURSE ---
pt is ad angie and takes self to bathroom was unable to get accurate
[2023-01-18] VITALS (19 sets, daily range): BP systolic 116–147; BP diastolic 59–84; PULSE 48–70; RESP 15–33; TEMP 36.1–36.6; O2SAT 95–100
[2023-01-18] MEDS: sodium chloride 0.9% 1,000 ML 100 ML IV (03:24)
[2023-01-18 05:43] LABS: Basophils % 0.4 %; Eosinophils # 0.2 10^3/uL (0.0-0.8); Eosinophils % 2.9 %; Hematocrit 41.5 % (36-47); Lymphocytes # 2.3 10^3/uL (0.8-4.8); Lymphocytes % 31.2 %; Mean Corpuscular Hemoglobin 27.9 pg (27-33); Mean Corpuscular Volume 87.2 fl (85-98); Mean Platelet Volume 11.4 fL (7.4-10.4); Monocytes # 0.6 10^3/uL (0.2-0.9); Monocytes % 7.6 %; Neutrophils # 4.16 10^3/uL (1.8-7.7); Neutrophils % 57.6 %; Nucleated Red Blood Cells % 0 %; Platelet Count 209 10^3/cmm (157-399); Red Blood Count 4.76 10^6/uL (3.85-5.65); Red Cell Distribution Width 13.1 % (12.1-15.1); White Blood Count 7.22 10^3/uL (3.29-11.43)
[2023-01-18] MEDS: pantoprazole 40 mg SDV IVP (05:50)
[2023-01-18 06:10] LABS: Alanine Aminotransferase 45 U/L (0-33); Albumin Level 3.8 g/dL (3.5-5.2); Alkaline Phosphatase 139 U/L (35-105); Anion Gap 12.5 (5-19); Aspartate Amino Transferase 26 U/L (0-32); Blood Urea Nitrogen 7 mg/dL (6-20); Calcium 8.7 mg/dL (8.5-10.5); Carbon Dioxide 24 mmol/L (22-29); Chloride 110 mmol/L (98-107); Globulin 1.9 g/dL (1.3-4.6); Glomerular Filtration Rate 108.6 mL/min (90-130); Glucose 92 mg/dL (65-115); Magnesium 2.1 mg/dL (1.7-2.3); Osmolality Calculated 292 mOsm/kg (285-295); Potassium 4.5 mmol/L (3.5-5.1); Sodium 142 mmol/L (136-145); Total Bilirubin 0.3 mg/dL (0.15-1.2); Total Protein 5.7 g/dL (6.6-8.7)
[2023-01-18] MEDS: nicotine 21 mg Patch 1 PATCH TRANSDERMA (09:18)
[2023-01-18] MEDS: fexofenadine 60 mg Tablet 180 MG PO (09:19)
--- NOTE | 2023-01-18 09:24 | PC.CHAP ---
Pastoral Care Encounter/Spiritual Assessment Type of Contact [] Declined cripple cutter visit [] Patient/Family/Request visit [] Outpatient visit [] Follow-up visit [] Physician referral [] Code/Alert []x Routine visit [] Staff referral [] Actively dying [] Patient sleeping [x] Family support [] [] Out of room [] Palliative care [] [] Receiving care in room [] Pre-surgical visit [] Trauma [] Long length of stay [] ICU visit [] Other: Relational/Emotional Strength [x] Patient feels connected with others/family/visitors/staff [] Distress [] Loneliness/isolation [] Abandonment Spirituality of Patient [x] Person of Sujatha [] Attends Sikh of their Sujatha [x] Believes in Prayer [] Reads Bible or Spiritism materials [] There are Spiritual issues to be addressed Funeral Planner Interventions [x] Prayer [x] Active listening [] Non-anxious presence [x] Spiritual/emotional support [] Crisis/trauma care [] Spiritual counseling [] Bereavement support [] Provided bereavement packet [] Provided Bible/devotional materials [] Provided toy/stuffed animal, coloring book to patient or family member [] Provided Communion [] Anointing/Warren [] Salvation [x] Completed spiritual assessment [] Other: Impact on Illness or Injury [] Angry [] Fearful [] Anxious [] Often cries [] Exhaustion [] Unable to work [] Unable to attend shinto [] Unable to walk/stand [] Unable to read [] Unable to drive [] Unable to eat/drink [] Unable to sleep [] Unable to be with family [] Patient intubated [] Other: Summary Time spent with patient 5 min
[2023-01-18] MEDS: HYDROmorphone 1 mg/mL INJ 1 mL 0.4 MG IVP (09:35)
[2023-01-18] MEDS: ondansetron 2 mg/ML SDV 2 mL 4 MG IVP ×2 (09:35→14:22)
[2023-01-18] MEDS: sodium chloride 0.9% 1,000 ML 30 ML IV (11:59)
[2023-01-18 12:01] LABS: HCG, Serum Qual Negative (Negative)
--- NOTE | 2023-01-18 12:17 | PM.PN ---
Vitals/I&O/Wt Last Vital Signs Temp 97.2 F L 01/18/23 11:41 Pulse 58 L 01/18/23 11:41 Resp 17 01/18/23 11:41 BP 116/77 01/18/23 11:41 Pulse Ox 95 01/18/23 11:41 O2 Del Method Room Air 01/18/23 11:41 01/17/23 01/18/23 01/18/23 22:59 06:59 14:59 Intake Total 1600 / 1600 1000 / 2600 Balance 1600 / 1600 1000 / 2600 Weight last 48 hrs Weight 199 lb Data 01/18/23 05:21 01/18/23 05:21 A&P Assessment and plan (1) Gallstone pancreatitis: (2) Symptomatic cholelithiasis: Plan Laparoscopic cholecystectomy The risks and benefits of the procedure, including but not limited to, bleeding, infection, scar, numbness, pain, damage to surrounding structures, damage to common bile duct requiring additional surgery, conversion to an open procedure, were explained to the patient. He is understanding of the risks and wishes to proceed. Intraoperative cholangiogram cannot be done due to patient's severe allergy to iodine Attestations Medical Necessity Statement*: Patient will likely be discharged home after the procedure Coding Level of Care Code Acute Code for Chg Fwd Diagnoses Gallstone pancreatitis K85.10 Symptomatic cholelithiasis K80.20
[2023-01-18] MEDS: diphenhydrAMINE 50 mg/mL SDV 1mL 12.5 MG IVP (12:19)
[2023-01-18] MEDS: ceFAZolin 2,000 MG in sodium chloride 0.9% (plus) 50 ML 100 MG IV (13:05)
[2023-01-18] MEDS: lidocaine-epi 2% 20 mL INJ INJECTION (13:25)
--- NOTE | 2023-01-18 13:46 | ANES.PREANE2 ---
Pre-Anesthetic Assessment Height/Weight: Height 1.6 m Weight 90.265 kg Temp Pulse Resp BP Pulse Ox O2 Del Method 97.2 F L 58 L 17 116/77 95 Room Air 01/18/23 11:41 01/18/23 11:41 01/18/23 11:41 01/18/23 11:41 01/18/23 11:41 01/18/23 11:41 Operation Date: 01/18/23 11:30 Proposed Procedures p Laparoscopic Cholecystectomy with IOC(Not Applicable) - Jose Juan Sanchez DO Familial anesthetic complications: none Was Beta Anna taken within 24 hours: N/A Was Clonidine taken within 24 hours: N/A Last intake: Intake Last Liquid Date 01/17/23 Last Solid Date 01/17/23 Social Tobacco and No alcohol Exam alert, oriented x 3 and regular rate & rhythm Airway Submandibular: within normal limits Cervical ROM: within normal limits Mallampati: Class II Dentition: chipped Comments: Comments: Very poor dentition, missing uppers Pulmonary Chronic Obstructive Pulmonary Disease Metabolic Morbid Obesity Anesthetic Plan ASA status: 3 Anesthesia: General Medications/Allergies Home Medications Medication Instructions Recorded Confirmed Last Taken Type chlorpheniramine maleate 4 mg 4 mg PO Q4H PRN Allergic Symptoms 01/17/23 01/17/23 01/16/23 History tablet hydroxyzine HCl 25 mg tablet 25 mg PO BEDTIME PRN Sleep 01/17/23 01/17/23 Unknown History ondansetron 4 mg disintegrating 4 mg PO Q12H PRN Nausea 01/17/23 01/17/23 01/16/23 History tablet oxycodone-acetaminophen 5 mg-325 1 tab PO Q8H PRN Pain 01/17/23 01/17/23 01/16/23 History mg tablet Allergies Allergy/AdvReac Type Severity Reaction Status Date / Time iodine Allergy ALGY-Swell Verified 01/15/23 13:04 Lip/Tongue/Throat Current Medications Generic Name Dose Route Start Last Admin Trade Name Freq PRN Reason Stop Dose Admin Diphenhydramine HCl 12.5 mg 01/18/23 11:33 01/18/23 12:19 Diphenhydramine 50 Mg/Ml Sdv 1ml IVP 12.5 mg ONCE PRN Administration PONV Fexofenadine HCl 180 mg 01/17/23 09:00 01/18/23 09:19 Fexofenadine 60 Mg Tablet PO 180 mg DAILY XUAN Administration Hydromorphone HCl 0.4 mg 01/17/23 07:37 01/18/23 09:35 Hydromorphone 1 Mg/Ml Inj 1 Ml IVP 0.4 mg Q2H PRN Administration -Severe Pain 7-10 Sodium Chloride 1,000 mls @ 100 mls/hr 01/17/23 06:15 01/18/23 03:24 Sodium Chloride 0.9% IV 100 mls/hr .Q10H XUAN Administration Sodium Chloride 1,000 mls @ 30 mls/hr 01/18/23 11:45 01/18/23 11:59 Sodium Chloride 0.9% IV 01/19/23 11:44 30 mls/hr .Q24H XUAN Administration Nicotine 1 patch 01/17/23 11:20 01/18/23 09:18 Nicotine 21 Mg Patch TRANSDERMA 1 patch DAILY XUAN Administration Ondansetron HCl 4 mg 01/17/23 06:09 01/18/23 09:35 Ondansetron 2 Mg/Ml Sdv 2 Ml IVP 4 mg Q6H PRN Administration vomiting, or N/V if npo Pantoprazole Sodium 40 mg 01/17/23 06:30 01/18/23 05:50 Pantoprazole 40 Mg Sdv IVP 40 mg Q12H XUAN Administration PFSH Anesthesia Surgical History History of loop electrical excision procedure (LEEP) Hx of heart artery stent x2 Family History Mother Cancer Hypertension Father Cancer Social History Smoking and tobacco/nicotine status: current every day tobacco/nicotine user cigarettes Alcohol intake: current Alcohol intake frequency: holidays/special occasions only Female Reproductive History Date of last menstrual period: 12/31/22 Data Anesthesia 01/18/23 05:21 01/18/23 05:21 Short CBC 01/17/23 01/18/23 Range/Units 01:18 05:21 WBC 12.06 H 7.22 (3.29-11.43) 10^3/uL Hgb 14.40 13.30 (11.27-16.99) g/dL Hct 42.9 41.5 (36-47) % MCV 85.0 87.2 (85-98) fl Plt Count 268 209 (157-399) 10^3/cmm Neut % (Auto) 66.2 57.6 % Neut # (Auto) 7.98 H 4.16 (1.8-7.7) 10^3/uL BMP 01/17/23 01/18/23 01:18 05:21 Sodium 139 142 Potassium 3.9 4.5 Chloride 103 110 H Carbon Dioxide 26 24 BUN 13 7 Creatinine 0.8 0.6 Glucose 115 92 Calcium 9.5 8.7 Liver Function 01/17/23 01/18/23 Range/Units 01:18 05:21 Total Bilirubin 0.3 0.3 (0.15-1.2) mg/dL AST 70 H 26 (0-32) U/L ALT 51 H 45 H (0-33) U/L Alkaline Phosphatase 162 H 139 H (35-105) U/L Albumin 4.0 3.8 (3.5-5.2) g/dL Urine 01/17/23 Range/Units 01:25 Urine Color Light yellow (Yellow) Urine Appearance Hazy A (CLEAR) Urine pH 7 (5-7) Ur Specific [place] 1.010 (1.005-1.030) Urine Protein Neg (Negative) Urine Glucose (UA) Norm (Normal) Urine Ketones Negative (Negative) Urine Nitrate Negative (Negative) Urine Bilirubin Neg (Negative) Ur Leukocyte Esterase Negative (Negative) Urine RBC None (0-2) /hpf Urine WBC None (0-5) /hpf Cardiac Studies: No Data to Display
--- NOTE | 2023-01-18 14:05 | P.OP_ITS ---
Operative Report Date of procedure: January 18, 2023 Pre-op diagnosis: Possible pancreatitis Symptomatic cholelithiasis Post-op diagnosis: same Procedure done: Laparoscopic cholecystectomy Implants: None Specimens removed/disposition: Gallbladder Surgeon: Jose Juan Sanchez DO Anesthesia: General Estimated blood loss (mL): 5 Complications: None apparent Brief History: This very pleasant 42-year-old female who originally saw in office with a lithiasis. She presented to the hospital with pancreatitis. Laparoscopic cholecystectomy was indicated. The risk and benefits were explained and documented. symptoms Procedure: Patient was wheeled into the operative room and placed on the OR table in a supine position. Abdomen was inspected prepped and draped in usual sterile fashion. Time-out was performed and all present were in agreement. A 15 blade scalp was used to make a stab incision in the left upper quadrant and intra- abdominal insufflation was achieved using a Veress needle. After localizing the tissue incisions were made and a 5 millimeter trocar was placed into the umbilicus as well as 2 in the right upper quadrant. A 12 millimeter trocar was placed in the epigastrium. Gallbladder was grasped and elevated. The triangle of Calot was carefully dissected using blunt dissection and electrocautery until the triangle of Calot clearly identified. The cystic duct was clipped proximally and double clipped distally. The duct was then ligated proximally. The cystic artery was doubly clipped and ligated. The gallbladder was then removed from the liver bed using electrocautery. The gallbladder was removed from the abdomen using an Endo-Catch bag through the epigastric incision. The liver bed was inspected and no bleeding was seen. The abdomen was irrigated and suctioned. All ports removed. Skin was washed and dried. Incisions were jany sed with 4-0 Monocryl in a subcuticular interrupted fashion. Skin glue was applied. Patient tolerated the procedure well.
--- NOTE | 2023-01-18 14:07 | PC.NURSE ---
1359 - readjustment of blood pressure cuff at this time - vital signs remain stable - pt resting quietly and easily arousable
[2023-01-18] MEDS: fentaNYL 50 mcg/mL INJ 2mL IVP (14:10)
--- NOTE | 2023-01-18 15:15 | ANE.PACU2 ---
Inpatient post-anesthesia follow up: Airway intact: Yes Vital signs: Temperature 97.8 F Pulse Rate 59 Respiratory Rate 18 Blood Pressure 147/72 Pulse Oximetry 96 Oxygen Delivery Me thod Room Air Oxygen Flow Rate 6 Fraction of Inspir ed Oxygen Hydration adequate: Yes Nausea and vomiting: No Pain level: 3 Mental status: Baseline
--- NOTE | 2023-01-18 15:29 | P.OP_ITS ---
Operative Report Date of procedure: January 18, 2023 Pre-op diagnosis: Possible pancreatitis Symptomatic cholelithiasis Post-op diagnosis: same Procedure done: Laparoscopic cholecystectomy Implants: none Specimens removed/disposition: Gallbladder Surgeon: Jose Juan Sanchez DO Anesthesia: General Complications: None apparent Brief History: This very pleasant 42-year-old female who came to the hospital with pancreatitis. She had known symptomatic cholelithiasis. Laparoscopic cholecystectomy was indicated. The risk benefits were explained and documented. Procedure: Patient was wheeled into the operative room and placed on the OR table in a supine position. Abdomen was inspected prepped and draped in usual sterile fashion. Time-out was performed and all present were in agreement. A 15 blade scalp was used to make a stab incision in the left upper quadrant and intra- abdominal insufflation was achieved using a Veress needle. After localizing the tissue incisions were made and a 5 millimeter trocar was placed into the umbilicus as well as 2 in the right upper quadrant. A 12 millimeter trocar was placed in the epigastrium. Gallbladder was grasped and elevated. The triangle of Calot was carefully dissected using blunt dissection and electrocautery until the triangle of Calot clearly identified. The cystic duct was clipped proximally and double clipped distally. The duct was then ligated proximally. The cystic artery was doubly clipped and ligated. The gallbladder was then removed from the liver bed using electrocautery. The gallbladder was removed from the abdomen using an Endo-Catch bag through the epigastric incision. The liver bed was inspected and no bleeding was seen. The abdomen was irrigated and suctioned. All ports removed. Skin was washed and dried. Incisions were closed with 4-0 Monocryl in a subcuticular interrupted fashion. Skin glue was applied. Patient tolerated the procedure well.
--- NOTE | 2023-01-18 16:01 | PM.DCS ---
Discharge Providers Date of Admission: 01/17/23 05:30 Date of Discharge: January 18, 2023 Attending Provider at Admission: Sirisha Veliz MD Attending Provider at Discharge: Jong Acosta MD Consults: General Surgery Primary Care Provider: Shreya Greenberg DO Diagnoses at Discharge Discharge Diagnosis (1) Gallstone pancreatitis: Status: Acute (2) Symptomatic cholelithiasis: Status: Acute Reason for Visit Reason for Visit: right abdomin pain, gallbladder surgery for 01/21 Hospital Course Hospital Course Lucia Fabian is a 42-year-old female with a past medical history significant for tobacco use disorder and recently diagnosed with symptomatic cholelithiasis who presents to the emergency department with severe abdominal pain despite oral analgesic. Patient found to have acute pancreatitis. General surgery consulted and followed. Patient initially treated with bowel rest, IVF, and IV analgesics. Symptoms improved. She underwent laproscopic cholecystectomy. Her post-op course was uncomplicated. Patient discharged to home in stable condition. She is to follow up with PCP and surgery clinic for continued care. Physical Exam Narrative: General: Patient is awake and alert. Pleasant. Head: Normocephalic. Atraumatic. EOM intact. Neck: No JVD. Cardiovascular: RRR. No gallops. No murmurs. Lungs: Clear to auscultation, no use of accessory muscles, no crackles or wheezes. Skin: No jaundice. No rashes. Abdomen: Normal bowel sounds, TTP in epigastric and RUQ. No guarding. Extremities: No cyanosis or clubbing. Musculoskeletal: No erythematous joints. Neurological: Moves all 4 extremities. No myoclonus. Discharge Data Studies Completed and Pending Completed Studies During Hospitalization Category Date Time Status CT abdomen pelvis wo con [id number] Stat Cat Scan 01/17/23 01:53 Completed US abdomen limited [id number] Stat Ultrasound 01/17/23 04:12 Completed Pending at discharge Category Date Time Status C-arm Fluoroscopy [id number] Routine Exams 01/18/23 11:57 Ordered Pathology: Surgical [PTH] Routine Pth 01/18/23 13:49 Ordered Radiology Impressions Abdomen/Pelvis CT 01/17/23 01:53 IMPRESSION: Negative for acute abdominopelvic pathology. Abdomen Ultrasound 01/17/23 04:12 IMPRESSION: Cholelithiasis. Negative for acute pathology. Laboratory Results WBC 7.22 10^3/uL (3.29-11.43) 01/18/23 05:21 RBC 4.76 10^6/uL (3.85-5.65) 01/18/23 05:21 Hgb 13.30 g/dL (11.27-16.99) 01/18/23 05:21 Hct 41.5 % (36-47) 01/18/23 05:21 MCV 87.2 fl (85-98) 01/18/23 05:21 MCH 27.9 pg (27-33) 01/18/23 05:21 MCHC 32.0 g/dL (30-55) 01/18/23 05:21 RDW 13.1 % (12.1-15.1) 01/18/23 05:21 Plt Count 209 10^3/cmm (157-399) 01/18/23 05:21 MPV 11.4 fL (7.4-10.4) H 01/18/23 05:21 Neut % (Auto) 57.6 % 01/18/23 05:21 Lymph % (Auto) 31.2 % 01/18/23 05:21 [place] % (Auto) 7.6 % 01/18/23 05:21 Eos % (Auto) 2.9 % 01/18/23 05:21 Baso % (Auto) 0.4 % 01/18/23 05:21 Neut # (Auto) 4.16 10^3/uL (1.8-7.7) 01/18/23 05:21 Lymph # (Auto) 2.3 10^3/uL (0.8-4.8) 01/18/23 05:21 [place] # (Auto) 0.6 10^3/uL (0.2-0.9) 01/18/23 05:21 Eos # (Auto) 0.2 10^3/uL (0.0-0.8) 01/18/23 05:21 Baso # (Auto) 0.0 10^3/uL (0.0-0.1) 01/18/23 05:21 Nucleated RBC % (auto) 0 % 01/18/23 05:21 Nucleated RBCs # 0.0 /100WBC 01/18/23 05:21 Sodium 142 mmol/L (136-145) 01/18/23 05:21 Potassium 4.5 mmol/L (3.5-5.1) 01/18/23 05:21 Chloride 110 mmol/L (98-107) H 01/18/23 05:21 Carbon Dioxide 24 mmol/L (22-29) 01/18/23 05:21 Anion Gap 12.5 (5-19) 01/18/23 05:21 BUN 7 mg/dL (6-20) 01/18/23 05:21 Creatinine 0.6 mg/dL (0.5-0.9) 01/18/23 05:21 GFR Calculation 108.6 mL/min (90-130) 01/18/23 05:21 Glucose 92 mg/dL (65-115) 01/18/23 05:21 Calculated Osmolality 292 mOsm/kg (285-295) 01/18/23 05:21 Calcium 8.7 mg/dL (8.5-10.5) 01/18/23 05:21 Magnesium 2.1 mg/dL (1.7-2.3) 01/18/23 05:21 Total Bilirubin 0.3 mg/dL (0.15-1.2) 01/18/23 05:21 AST 26 U/L (0-32) 01/18/23 05:21 ALT 45 U/L (0-33) H 01/18/23 05:21 Alkaline Phosphatase 139 U/L (35-105) H 01/18/23 05:21 Total Protein 5.7 g/dL (6.6-8.7) L 01/18/23 05:21 Albumin 3.8 g/dL (3.5-5.2) 01/18/23 05:21 Globulin 1.9 g/dL (1.3-4.6) 01/18/23 05:21 Lipase 906 U/L (13-60) H 01/17/23 01:18 HCG, Qual Negative (Negative) 01/18/23 05:21 Urine Color Light yellow (Yellow) 01/17/23 01:25 Urine Appearance Hazy (CLEAR) A 01/17/23 01:25 Urine pH 7 (5-7) 01/17/23 01:25 Ur Specific [place] 1.010 (1.005-1.030) 01/17/23 01:25 Urine Protein Neg (Negative) 01/17/23 01:25 Urine Glucose (UA) Norm (Normal) 01/17/23 01:25 Urine Ketones Negative (Negative) 01/17/23 01:25 Urine Blood Neg (Negative) 01/17/23 01:25 Urine Nitrate Negative (Negative) 01/17/23 01:25 Urine Bilirubin Neg (Negative) 01/17/23 01:25 Urine Urobilinogen 1 mg/dL (Negative) H 01/17/23 01:25 Ur Leukocyte Esterase Negative (Negative) 01/17/23 01:25 Urine RBC None /hpf (0-2) 01/17/23 01:25 Urine WBC None /hpf (0-5) 01/17/23 01:25 Ur Squamous Epith Cells None /hpf (0-5) 01/17/23 01:25 Amorphous Sediment 2+ /hpf 01/17/23 01:25 Urine Bacteria Trace /hpf (NONE) 01/17/23 01:25 Procedures Performed Laparoscopic cholecystectomy Vitals Last Vital Signs Temp 97.8 F 01/18/23 14:45 Pulse 59 L 01/18/23 14:45 Resp 18 01/18/23 14:45 BP 147/72 01/18/23 14:45 Pulse Ox 96 01/18/23 14:45 O2 Del Method Room Air 01/18/23 14:45 O2 Flow Rate 6 01/18/23 13:54 Discharge Plan Discharge Patient Disposition: Home Condition: Stable Prescriptions: New Percocet 5-325 mg tablet 1 tab PO Q4H PRN (Reason: pain) Qty: 20 0RF Continued chlorpheniramine maleate 4 mg Tablet 4 mg PO Q4H PRN (Reason: Allergic Symptoms) hydroxyzine HCl 25 mg tablet 25 mg PO BEDTIME PRN (Reason: Sleep) ondansetron 4 mg Tablet,Disintegrating 4 mg PO Q12H PRN (Reason: Nausea) Discontinued oxycodone-acetaminophen 5-325 mg Tablet 1 tab PO Q8H PRN (Reason: Pain) Discharge Orders: Discharge Order (Routine); Ordered 01/18/23 Ordered By: Jong Acosta Referrals: Jose Juan Sanchez DO [Physician] - 1 week (Post lap naomi wound check We have notified your physician's clinic of the need for a follow-up appointment to be scheduled. If you have not heard from them within the next 2 business days, please call them directly. You may also reach out to our retail pharmacy manager at [phone] and she can assist you.) Shreya Greenberg, [Primary Care Provider] - 1 week (We have notified your physician's clinic of the need for a follow-up appointment to be scheduled. If you have not heard from them within the next 2 business days, please call them directly. You may also reach out to our retail pharmacy manager at [phone] and she can assist you.) Discharge Diet: Advance as tolerated Discharge Activity: Increase activity as tolerated Patient Instructions: Oxycodone/Acetaminophen (By mouth), Laparoscopic Cholecystectomy (DC), Opioid Safety, Post Anesthesia Care Activity Restrictions/Additional Instructions: 1. No driving or operating machinery for 24 hours after surgery. 2. Take medications as prescribed. 3. Follow up with Dr Sanchez and PCP in clinic. 4. Keep coughing and doing deep breathing exercises for 7 to 10 days after you go home. This will help prevent lung infections. 5. Avoid heavy lifting, sports, and swimming for at least 2 weeks. 6. Use a stool softener to help prevent constipation, if needed. 7. Be aware that if you had minimally invasive surgery, you might have some pain in your shoulder. This is from gas that the doctor put into your belly during the surgery. Walking and moving around will help to reduce the gas and ease the pain. Discharge Attestations Time Spent in Discharge Care*: greater than 30 min Quality Metrics Clinical Quality Measures [ No reported AMI, CVA or VTE this stay] Coding Level of Care Code Acute Code for Chg Fwd Diagnoses Gallstone pancreatitis K85.10 Symptomatic cholelithiasis K80.20
== END 2023-01-18 18:12 | disposition home or self-care (01) | DRG 417 ==
LOC: ER 05:08 → MEDSURG 05:30
PROVIDERS: Surgery; Admitting Provider Internal Medicine; Emergency Provider Emergency Medicine; PCP Family Medicine; Visit Provider Internal Medicine
PROC: 0FT44ZZ Resection of Gallbladder, Percutaneous Endoscopic Approach (ICD-10-PCS; CPT 47562; principal; 2023-01-18 11:30)
DX: K80.20 Calculus of gallbladder without cholecystitis without obstruction (principal); K85.10 Biliary acute pancreatitis without necrosis or infection; I25.10 Atherosclerotic heart disease of native coronary artery without angina pectoris; Z95.5 Presence of coronary angioplasty implant and graft; F17.210 Nicotine dependence, cigarettes, uncomplicated
CPT/HCPCS: 36415; 74176; 76705; 80053; 81001; 83690; 83735; 84703; 85025; 88304; 93005; 96374; 96375; 99285; C9113; J0690; J1100; J1170; J1200; J1885; J2250; J2405; J2710; J3010; J3490; J7030

== ENCOUNTER → 2023-01-29 08:40 | Outpatient (BNVA) | payer MEDICAID, SELFPAY | PROVIDERS: PCP Family Medicine; Visit Provider Surgery | DX: Z90.49 Acquired absence of other specified parts of digestive tract (principal); Z98.890 Other specified postprocedural states | CPT/HCPCS: 99024 ==

== ENCOUNTER 2023-01-30 14:46 | Outpatient (CLI) | payer MEDICAID, SELFPAY ==
--- NOTE | 2023-01-30 14:53 | MM_ITS ---
WS: [id number] BILATERAL 3D TOMOSYNTHESIS DIGITAL SCREENING MAMMOGRAPHY WITH CAD CLINICAL INFORMATION: SCREENING HISTORY: Screening mammogram. No current complaints. COMPARISON: Baseline TECHNIQUE: Bilateral CC and MLO views. FINDINGS: Scattered fibroglandular densities bilaterally. No suspicious focal mass, asymmetry, calcifications, or architectural distortion. No evidence of malignancy. Ovoid nodule upper quadrant LEFT breast with fatty hilum compatible with intramammary lymph node. IMPRESSION: MM/[place] [id number] BI-RADS: 2-Benign FOLLOW UP: 1 Year Follow-up Recommend return to annual screening mammography.
== END 2023-01-30 14:47 | disposition home or self-care (01) ==
LOC: RAD 14:46
PROVIDERS: PCP Family Medicine; Visit Provider Family Medicine
DX: Z12.31 Encounter for screening mammogram for malignant neoplasm of breast (principal)
CPT/HCPCS: 77063; 77067